=== PATIENT | female | born 1980 | race Caucasian/White ===

== ENCOUNTER 2017-09-26 02:51 | Emergency (ER) | payer OTHER ==
[2017-09-26 03:20] VITALS: BP 135/96
--- NOTE | 2017-09-26 04:04 | EDM.PDOC ---
ED HPI GENERAL MEDICAL PROBLEM - General Chief Complaint: Abdominal Pain Stated Complaint: PELVIC PAIN Time Seen by Provider: 09/26/17 03:29 Source of Information: Reports: Patient, Old Records, RN Notes Reviewed History Limitations: Reports: No Limitations - History of Present Illness INITIAL COMMENTS - FREE TEXT/NARRATIVE: 02.28 Here with her Chief complaint Pelvic pain History of present illness 37-year-old female was having intercourse with her and at the very end sudden onset pelvic pain at 10:30 PM, bilateral both sides. It was quite uncomfortable waxing and waning, tried curling up in a ball and was able to get to sleep for a couple of hours and woke up again at 1:30 AM. Pain was associated with nausea waxing and waning and quite uncomfortable. Occurring in waves where would be very intense for minutes and subside for 2 or 3 minutes. Because of the intense pain decided to come into emergency but pain subsided on the drive here. No back pain No urinary pain although she did feel the need to void. Well during the day, no recent illness No abdominal bloating She's had 4 children by vaginal delivery Appendectomy at age 9 History of ruptured ovarian cyst but because the pain is bilateral tonight it feels different than when she had cysts Uses condoms for contraception Last menstrual period was 2 weeks ago, has regular menses Pelvic Pain Score (Numeric/FACES): 4 - Related Data Allergies Allergy/AdvReac Type Severity Reaction Status Date / Time No Known Allergies Allergy Verified 09/26/17 03:20 Home Meds: Home Meds Levothyroxine 75 mcg PO DAILY 08/18/13 [History] Past Medical History - Past Health History Medical/Surgical History: Denies Medical/Surgical History [employer] History: Reports: Musculoskeletal History: Reports: Fracture Endocrine/Metabolic History: Reports: Hypothyroidism - Past Surgical History GI Surgical History: Reports: Appendectomy Social & Family History - Tobacco Use Smoking Status *Q: Never Smoker Second Hand Smoke Exposure: No - Alcohol Use Days Per Week of Alcohol Use: 0 - Recreational Drug Use Recreational Drug Use: No ED ROS GENERAL - Review of Systems Review Of Systems: See Below Constitutional: Denies: Fever, Chills, Diaphoresis, Weight Loss HEENT: Reports: No Symptoms Respiratory: Reports: No Symptoms Cardiovascular: Reports: No Symptoms GI/Abdominal: Reports: Abdominal Pain (Both lower quadrants or else pelvic), Nausea. Denies: Bloody Stool, Constipation, Diarrhea, Vomiting : Reports: Pain, Urgency. Denies: Discharge, Dysuria, Flank Pain, Frequency, Hematuria, Irregular Menses Musculoskeletal: Reports: No Symptoms Skin: Reports: No Symptoms Neurological: Reports: No Symptoms Psychiatric: Reports: No Symptoms Hematologic/Lymphatic: Reports: No Symptoms Immunologic: Reports: No Symptoms ED EXAM, RENAL/ - Physical Exam Exam: See Below Exam Limited By: No Limitations General Appearance: Alert, No Apparent Distress, Other (Vital signs are normal, Color normal, no difficulty speaking or breathing) Eye Exam: Bilateral Eye: Normal Inspection Throat/Mouth: Normal Inspection Head: Atraumatic, Normocephalic Neck: Normal Inspection, Non-Tender Respiratory/Chest: No Respiratory Distress, Lungs Clear, Normal Breath Sounds, No Accessory Muscle Use Cardiovascular: Normal Peripheral Pulses, Regular Rate, Rhythm GI/Abdominal: Normal Bowel Sounds, Soft, No Distention, No Mass, Tender (Left lower quadrants just above the inguinal ligament) (Female) Exam: Normal External Exam, Normal Speculum Exam, Adnexal Tenderness (Bilateral, equally along with tenderness of the uterus). No: Adnexal Mass, Cervical Dilatation, Cervical Discharge, Cervical Fluid, Cervical Lesions, Cervix Motion Tenderness, Enlarged Uterus, Vaginal Discharge, Vaginal Lesions, Vaginal Tears Back Exam: Normal Inspection. No: CVA Tenderness (R), CVA Tenderness (L) Extremities: Normal Inspection, Non-Tender, No Pedal Edema Neurological: Alert, Oriented, Normal Cognition, No Motor/Sensory Deficits Psychiatric: Normal Affect, Normal Mood Skin Exam: Warm, Dry, Intact, Normal Color, No Rash Lymphatic: No Adenopathy Course - Vital Signs Last Recorded V/S: Last Vital Signs Temp 35.9 C 09/26/17 03:18 Pulse 86 09/26/17 03:18 Resp 16 09/26/17 03:18 BP 135/96 H 09/26/17 03:18 Pulse Ox 98 09/26/17 03:18 - Orders/Labs/Meds Labs: Laboratory Tests 09/26/17 09/26/17 Range/Units 03:55 03:56 WBC 9.2 (4.5-11.0) K/uL RBC 4.63 (3.30-5.50) M/uL Hgb 11.8 L (12.0-15.0) g/dL Hct 36.2 (36.0-48.0) % MCV 78 L (80-98) fL MCH 26 L (27-31) pg MCHC 33 (32-36) % Plt Count 238 (150-400) K/uL Urine Color Yellow Urine Appearance Clear Urine pH 5.0 (4.5-8.0) Ur Specific [place] 1.020 (1.008-1.030) Urine Protein Negative (NEGATIVE) mg/dL Urine Glucose (UA) Normal (NEGATIVE) mg/dL Urine Ketones Negative (NEGATIVE) mg/dL Urine Occult Blood Negative (NEGATIVE) Urine Nitrite Negative (NEGATIVE) Urine Bilirubin Negative (NEGATIVE) Urine Urobilinogen Normal (NORMAL) mg/dL Ur Leukocyte Esterase Negative (NEGATIVE) Urine RBC 0-5 (0-5) Urine WBC 0-5 (0-5) Ur Epithelial Cells Many Amorphous Sediment Not seen Urine Bacteria Not seen Urine Mucus Rare - Re-Assessments/Exams Free Text/Narrative Re-Assessment/Exam: 09/26/17 04:04 37-year-old female with sudden onset pelvic pain post intercourse. Pain has subsided. Abdominal and pelvic exam locates the pain in the pelvic area without a discrete localization She has declined analgesics at this time CBC Urinalysis 09/26/17 04:35 04.35 pain remains minimal WBC normal, hemoglobin 11.7 with mild microcytosis, suggestive of chronic anemia rather than acute loss Urinalysis normal Discharge home Return if new symptoms develop otherwise follow-up with primary care as needed Departure - Departure Time of Disposition: 04:32 Disposition: Home, Self-Care 01 Condition: Good Clinical Impression: Pelvic pain in female - Discharge Information Referrals: Rianna Dunlap NP [Primary Care Provider] - Forms: ED Department Discharge Additional Instructions: The cause of your pain tonight is unclear. Examination shows tenderness in the pelvic area without any particular area being more tender than any other. Your white cell count is normal as is your urine test so it's unlikely that there is any infection. You have mild anemia with small cells, this would suggest anemia from decreased iron intake or iron loss rather than acute blood loss. Possible causes of your bleeding include a broken blood vessel or ligament tear , and ovarian cyst, a pinched nerve among others. Get rechecked if you have increasing pain, fever, vomiting or painful urination or any other new symptoms.
== END 2017-09-26 04:41 | disposition home or self-care (01) ==
LOC: JP.ED 02:51
DX: R10.2 Pelvic and perineal pain (principal); E03.9 Hypothyroidism, unspecified
CPT/HCPCS: 36415; 76856; 76856-26; 81001; 85027; 99284

== ENCOUNTER 2025-11-29 14:08 | Day surgery (SDC) | payer BC, OTHER ==
[~2025-11-29 14:08] MED LIST: Ondansetron 4 MG/2 ML SDV ONE; Propofol 200 MG/20 ML SDV ONE
[2025-11-29] MEDS ORDERED: Dexamethasone 4 MG/ML SDV ONE (14:24)
[2025-11-29] MEDS: Lactated Ringers 1,000 ML IV SCH (14:38)
[2025-11-29] MEDS ORDERED: Propofol 200 MG/20 ML SDV ONE ×2 (14:49→15:01)
[2025-11-29] MEDS: Bupivacaine 0.25%/EPINEPHrine 1:200,000 30 ML SDV ONE (15:30)
[2025-11-29] MEDS: Bacitracin Oint 1 GM U/D Packet ONE (15:30)
[2025-11-29 16:05] VITALS: BP 139/82; PULSE 73
== END 2025-11-29 16:20 | disposition home or self-care (01) ==
LOC: JP.SDS 14:08
PROVIDERS: ATTEND Surgery
DX: K64.5 Perianal venous thrombosis (principal); E03.9 Hypothyroidism, unspecified; Z79.890 Hormone replacement therapy
CPT/HCPCS: 36415; 46083; 84703; J1100; J2405; J2704; J7120; 00902-QZ